=== PATIENT | female | born 1950 | race African-American/Black ===

== ENCOUNTER 2017-07-18 14:58 | Inpatient (IN) | payer OTHER ==
[~2017-07-18] VITALS: Ht 170.2 cm; Wt 81.6 kg
--- NOTE | ~2017-07-18 | H ---
[facility] [place] [address] HISTORY AND PHYSICAL Name: JHONATHAN TUCKER Room #: 431-P ADM IN M.R.#: [id number] Admission: 07/18/17 Attend Phys: Tamra Hughes MD Discharge: Date of : 52 Report #: [id number] THIS REPORT FOR: //name// CC: Tamra Hughes DATE OF SERVICE: 07/18/2017 HISTORY OF PRESENT ILLNESS: The patient is a 67-year-old female who was admitted originally to [facility] with a question of bacteremia. The patient was started on ciprofloxacin and was discharged home. The patient called me to indicate that she was having a lot of diarrhea, so I went ahead and started the patient on Flagyl with the thought that she might have some type of C. difficile colitis. The patient came to see me on and at that time, she was telling me that her diarrhea has almost completely subsided, and she continued to have pain in her knee, but it is much better than before. For this reason, we said to continue the antibiotics for a total of 14 days, it was Flagyl and to follow up with me after a couple of weeks. The patient indicated after she left the office, she had intense diarrhea, abdominal pain, nausea, generalized weakness and increasing pain on her knee. For this reason, she came to the emergency room to be evaluated. PAST MEDICAL HISTORY: Significant for partial hysterectomy, hypertension, questionable staph infection in the blood, but unfortunately I do not have any documentation of that. MEDICATIONS: Reviewed and reconciled. ALLERGIES: AMOXICILLIN AND LISINOPRIL. SOCIAL HISTORY: She denies any smoking, alcohol use or drug use. FAMILY HISTORY: Noncontributory. REVIEW OF SYSTEMS: The patient denies any headache, blurred vision, runny nose, sore throat, cough, chest pain, shortness of breath or abdominal pain. The patient did not have any further diarrhea since she was brought to the emergency room. Pain on the right knee is about baseline. PHYSICAL EXAMINATION: VITAL SIGNS: On arrival to the hospital, the patient's temperature was 97.3, pulse 78, respirations 20, blood pressure 159/79. Oxygen saturation was 91% to 93%. HEAD AND NECK: Unremarkable. NECK: Supple. LUNGS: Clear to auscultation. CARDIAC: S1, S2. [address] [address] HISTORY AND PHYSICAL Name: GARRETTJHONATHAN Room #: 431-[facility] IN M.R.#: [id number] Admission: 07/18/17 Attend Phys: Tamra Hughes MD Discharge: Date of : 52 Report #: [id number] ABDOMEN: Benign. Bowel sounds were positive. No tenderness, no rigidity, no rebound tenderness. EXTREMITIES: Without any edema. LABORATORY DATA: The patient's urinalysis showed positive nitrite, trace leukocyte esterase, white blood cells 0-5, red blood cells 0-2, bacteria more than 30. Basic metabolic panel showed sodium of 144, potassium 2.6, chloride 106, bicarbonate 29, BUN 7, creatinine 0.9, glucose 116. The patient's chemistry was normal. The patient's ALT was 14, and albumin was 3.2. The patient's lactic acid 0.9. White count was 9.7, hemoglobin 12.0, hematocrit 35.9, platelet count 445, neutrophils are 58%. The patient's magnesium was 1.9. CT of the abdomen and pelvis showed mild diverticulosis of the colon without signs of diverticulitis, no signs of appendicitis. Indeterminate 1.3 cm left adrenal nodule, likely a small adrenal adenoma. Three views of the right knee showed mild degenerative changes and no acute process. EKG showed a sinus rhythm, baseline wandering in lead V6. Repeated basic metabolic panel showed a sodium of 142, potassium 3.4, chloride 107, bicarbonate 25, BUN 4, creatinine 0.8, magnesium 1.7. CBC showed a white count of 10.4, hemoglobin 11.7, hematocrit 35.8, platelet count 436 and neutrophils are 54%. ASSESSMENT AND PLAN: 1. Diarrhea, the cause of this is not very clear. I am asking stool for Clostridium difficile, but we do not have the results, I will continue with the use of Flagyl that was started as an outpatient. 2. Hypertension. The patient to resume her medications. 3. Hypokalemia. We will go ahead and replace patient's potassium 4. Right knee osteoarthritis. I will resume the pain management for the patient. The patient to start physical therapy and occupational therapy. We will start the patient on Lovenox for DVT prophylaxis. <ELECTRONICALLY SIGNED> By: Tamra Hughes MD 07/20/17 0738 0820 9 Tamra Hughes MD /nt
--- NOTE | ~2017-07-18 | EKG ---
[address] [address] ELECTROCARDIOGRAM REPORT Name: GARRETTJHONATHAN Room #: 431-P ADM IN M.R.#: [id number] Admission: 07/18/17 Attend Phys: Tamra Hughes MD Discharge: Date of : 52 Report #: [id number] THIS REPORT FOR: //name// [facility] ED Test Date: 2017-07-18 Test Time: 16:31:04 Pat Name: JHONATHAN TUCKER Department: Room: [facility] Gender: F Director Of Laboratory Operations: NGUYEN : 1950 Requested By: Derrick Gonzalez Order Number: [id number] MD: Luis Daniel Mejia Measurements Intervals [place] Rate: 70 P: 60 DE: 164 QRS: 29 QRSD: 100 T: 16 QT: 435 QTc: 470 Interpretive Statements Sinus rhythm Baseline wander in lead(s) V6 No previous ECG available for comparison Electronically Signed On 07-18-2017 21:21:19 CDT by Luis Daniel Mejia [email or web address] <ELECTRONICALLY SIGNED> By: Luis Daniel Mejia MD 07/18/172120 30 1631 Luis Daniel Mejia MD /COLBY
[2017-07-18 14:59] VITALS: BP 113/94
[2017-07-18 15:39] LABS: URINE BILIRUBIN NEGATIVE (Negative); URINE BLOOD NEGATIVE (Negative); URINE COLOR YELLOW; URINE GLUCOSE-RANDOM* NEGATIVE (Negative); URINE KETONES NEGATIVE (Negative); URINE NITRITE POSITIVE (Negative); URINE PROTEIN (DIPSTICK) NEGATIVE (Negative); URINE UROBILINOGEN 0.2 E.U./dl (0.2-1.0)
[2017-07-18 15:41] LABS: HEMATOCRIT 35.9 % (37.0-47.0); MCH 27.1 pg (26.0-34.0); MCHC 33.4 g/dL (28.0-37.0); PLATELET COUNT 445 thou/uL (150-400); RBC 4.44 mil/uL (4.20-5.00); RDW 15.2 % (10.5-14.5); WBC 9.7 thou/uL (4.0-11.0)
[2017-07-18 15:49] LABS: SQUAMOUS >10 Many /LPF (0-3)
[2017-07-18 15:50] LABS: BACTERIA >30 Many /HPF (None Seen); CASTS None Seen /LPF (None Seen); CRYSTALS None Seen /LPF (None Seen); URINE RBC 0-2 Rare /HPF (0-2); URINE WBC 0-5 Rare /HPF (0-5)
[2017-07-18 15:52] LABS: MANUAL DIFF YES
[2017-07-18 15:55] LABS: CALCIUM 9.7 mg/dL (8.5-10.1); CREATININE 0.9 mg/dL (0.6-1.0)
[2017-07-18 15:57] LABS: POTASSIUM 2.6 mmol/L (3.5-5.1)
[2017-07-18 16:03] LABS: ALBUMIN 3.2 g/dL (3.4-5.0); DIRECT BILIRUBIN 0.1 mg/dL (<0.1-0.3); TOTAL BILIRUBIN 0.3 mg/dL (<0.1-1.0); TOTAL PROTEIN 7.9 g/dL (6.4-8.2)
[2017-07-18 16:29] LABS: ABSOLUTE NEUTROPHILS 5.6 thou/uL (1.4-8.2); TOTAL CELL COUNT 100
[2017-07-18 17:38] VITALS: BP 161/71
[2017-07-18 19:28] VITALS: BP 143/70
[2017-07-18 23:35] VITALS: BP 159/79
[2017-07-19 03:20] VITALS: BP 165/88
[2017-07-19 06:26] LABS: HEMATOCRIT 35.8 % (37.0-47.0); HEMOGLOBIN 11.7 gm/dL (12.0-15.0); MCH 26.5 pg (26.0-34.0); MCHC 32.5 g/dL (28.0-37.0); MCV 81.5 fL (80.0-100.0); PLATELET COUNT 436 thou/uL (150-400); RDW 15.8 % (10.5-14.5); WBC 10.4 thou/uL (4.0-11.0)
[2017-07-19 06:35] LABS: CALCIUM 9.1 mg/dL (8.5-10.1); CREATININE 0.8 mg/dL (0.6-1.0); MAGNESIUM 1.7 mg/dL (1.8-2.4); POTASSIUM 3.4 mmol/L (3.5-5.1)
[2017-07-19 07:06] LABS: MANUAL DIFF YES
[2017-07-19 07:20] VITALS: BP 155/81
[2017-07-19 08:12] LABS: ABSOLUTE NEUTROPHILS 5.6 thou/uL (1.4-8.2); ANISOCYTOSIS 1+; TOTAL CELL COUNT 100
[2017-07-19 16:26] VITALS: BP 157/82
[2017-07-19 20:39] VITALS: BP 158/75
[2017-07-20 03:43] VITALS: BP 161/88
[2017-07-20 06:08] LABS: ABSOLUTE NEUTROPHILS 6.1 thou/uL (1.4-8.2); BASOPHILS 1.1 % (0.0-2.0); EOSINOPHILS 3.3 % (0.0-3.0); HEMATOCRIT 38.8 % (37.0-47.0); HEMOGLOBIN 12.8 gm/dL (12.0-15.0); LYMPHOCYTES 23.9 % (24.0-44.0); MCH 26.8 pg (26.0-34.0); MCHC 32.9 g/dL (28.0-37.0); MCV 81.4 fL (80.0-100.0); MONOCYTES 11.7 % (1.0-8.0); PLATELET COUNT 436 thou/uL (150-400); RBC 4.76 mil/uL (4.20-5.00); RDW 15.4 % (10.5-14.5); WBC 10.1 thou/uL (4.0-11.0)
[2017-07-20 06:13] LABS: MANUAL DIFF NO
[2017-07-20 06:21] LABS: CALCIUM 9.3 mg/dL (8.5-10.1); CREATININE 0.8 mg/dL (0.6-1.0); POTASSIUM 3.9 mmol/L (3.5-5.1)
[2017-07-20 07:03] VITALS: BP 146/74
[2017-07-20 11:08] VITALS: BP 146/74
== END 2017-07-20 13:16 | disposition home or self-care (01) | DRG 392 ==
LOC: ER 14:58 → 4E 16:26 → EROBS 16:26 → 4E 17:28
PROVIDERS: Internal Medicine; Nurse Practitioner
DX: R19.7 Diarrhea, unspecified (principal); E87.6 Hypokalemia; I10 Essential (primary) hypertension; M17.11 Unilateral primary osteoarthritis, right knee; Z87.891 Personal history of nicotine dependence; Z90.710 Acquired absence of both cervix and uterus; Z88.1 Allergy status to other antibiotic agents; Z88.8 Allergy status to other drugs, medicaments and biological substances
CPT/HCPCS: 10183